=== PATIENT | male | born 1995 | race Caucasian/White ===

== ENCOUNTER → 2022-06-27 12:05 | Outpatient (BNVA) | payer OTHER, SELFPAY | PROVIDERS: Visit Provider Family Medicine | DX: R06.83 Snoring (principal) | CPT/HCPCS: 80053; 85025 ==

== ENCOUNTER 2022-10-01 20:00 | Outpatient (CLI) | payer OTHER, SELFPAY | END 2022-10-01 20:01 | disposition home or self-care (01) | LOC: SLEEP 10-02 05:08 | PROVIDERS: Visit Provider Family Medicine | DX: G47.33 Obstructive sleep apnea (adult) (pediatric) (principal); R06.83 Snoring | CPT/HCPCS: 95810 ==

== ENCOUNTER 2024-02-23 01:30 | Emergency (ER) | payer SELFPAY ==
[2024-02-23 01:42] VITALS: BP 166/100; PULSE 91; RESP 18; TEMP 36.6; O2SAT 99; BMI 28.7
[2024-02-23 01:45] VITALS: BP 161/108; PULSE 80; O2SAT 98
[2024-02-23 02:02] VITALS: BP 147/96; PULSE 78; O2SAT 97
[2024-02-23 02:33] VITALS: RESP 18; O2SAT 97
[2024-02-23] MEDS: levoFLOXacin 750 mg Tablet PO (02:33)
[2024-02-23] MEDS: oxyCODONE-APAP 5-325 mg Tablet 2 TAB PO (02:33)
[2024-02-23] MEDS: ketorolac 10 mg Tablet PO (02:34)
[2024-02-23] MEDS: dexamethasone 10 mg/mL INJ 8 MG PO (02:35)
[2024-02-23 02:48] LABS: Covid PCR NEGATIVE (Negative); Influenza A NEGATIVE (Negative); Influenza B NEGATIVE (Negative); Respiratory Syncytial Virus Ce NEGATIVE (Negative)
--- NOTE | 2024-02-23 02:48 | W.ED.URI ---
HPI - URI/Sore Throat General: Chief Complaint: Upper Respiratory Infection Stated Complaint: headache eyes swollen blood in throat Time Seen by Provider: 02/23/24 02:00 History of Present Illness: 28-year-old male he says he had surgery on his sinuses around 6 weeks ago in [facility]. He presents with forehead pain, eyebrow pain, congestion, and sore throat. He says that he ran a fever yesterday. He states that he was on antibiotics for 2 weeks following his surgery, but has not been on them since Related Data Previous Rx's Medication Instructions Recorded CPAP 14 setting #1 ea 10/04/22 CPAP mask, tubing, supplies #1 ea 10/04/22 ibuprofen 800 mg tablet 800 mg PO Q8H PRN pain #60 tabs 05/25/23 levocetirizine 5 mg tablet (Xyzal) 5 mg PO DAILY PRN allergy symptoms 06/26/23 #60 tabs levofloxacin 750 mg tablet 750 mg PO DAILY 7 days #7 tabs 02/23/24 Allergies Allergy/AdvReac Type Severity Reaction Status Date / Time No Known Allergies Allergy Verified 06/26/23 11:36 [facility] ED PFSH: Medical History Obstructive sleep apnea History of arm fracture Family History Grandmother Cancer Maternal--unsure Father ALS (amyotrophic lateral sclerosis) Denies family history of Diabetes CAD (coronary artery disease) Clotting disorder Dementia Hyperlipidemia Psychiatric illness Chronic kidney disease (CKD) Anesthesia complication Bleeding disorder Lung disease Hypertension Stroke Social History Smoking and tobacco/nicotine status: never used tobacco/nicotine Alcohol intake: current Alcohol intake frequency: holidays/special occasions only Substance/Drug Use: never Adopted: No Caregiver/support person: No Lives independently: Yes Marital status: Legally Number of children: 1 service: No Current occupational status: employed Current occupation: Owns [employer] Current gender identity: Male Special jay needs: No Agree to transfusion: Yes Physical Exam Const: COMMON NORMALS: no acute distress GENERAL APPEARANCE: cooperative; not ill appearing and not frail appearing HENMT: COMMON NORMALS: normocephalic, atraumatic and Normal external nose present HEAD & SCALP: normocephalic and atraumatic FACE & SINUS: Facial tenderness on exam of face and sinuses on the right periorbital and forehead NOSE: Normal external nose present Eye: COMMON NORMALS: Equal, round and reactive pupils present and EOMs intact bilaterally PUPIL: Yes Equal, round and reactive pupils present Neck/C-Spine: GENERAL: Yes trachea midline Chest: CHEST: Yes Symmetrical chest wall rise Resp: COMMON NORMALS: normal respiratory effort, No retractions, No use of accessory muscles and clear to auscultation bilaterally AUSCULTATION: clear to auscultation bilaterally Cardio: COMMON NORMALS: regular rate and regular rhythm RATE: regular rate RHYTHM: regular rhythm GI: COMMON NORMALS: Normal to inspection, nondistended, normoactive bowel sounds present Extremity: COMMON NORMALS: no pedal edema Neuro: ALIYAH COMA SCALE: document GCS findings Aliyah coma scale eye opening: Spontaneous Aliyah coma scale verbal response: Orientated Aliyah coma scale motor response: Obey commands Aliyah coma scale total score: 15 SENSORY EXAM: Yes extremities (intact) Psych: COMMON NORMALS: speech normal SPEECH: Yes normal speech Skin: COMMON NORMALS: no rashes or lesions noted GENERAL SKIN EXAM: no rashes or lesions noted Course Vital Signs: Vital signs: Vital Signs Temperature 97.9 F 02/23/24 01:42 CS T Pulse Rate 78 02/23/24 02:02 Respiratory Rate 18 02/23/24 02:33 Blood Pressure 147/96 02/23/24 02:02 Pulse Oximetry 97 02/23/24 02:33 MDM - URI/Sore Throat Medical Decision Making Frontal sinus tenderness on the right. Minimal eyelid swelling. He is afebrile. He is hypertensive. Otherwise vital stable. Viral swab is negative. He will be treated for sinusitis given his recent surgery. Lab Data Laboratory Results Coronavirus (PCR) Negative (Negative) 02/23/24 01:43 [employer] Influenza A (PCR) Negative (Negative) 02/23/24 01:43 [employer] DIRECTOR Influenza Type B (PCR) Negative (Negative) 02/23/24 01:43 [employer] DIRECTOR RSV (PCR) Negative (Negative) 02/23/24 01:43 [employer] DIRECTOR All radiology interpretation(s) finalized by discharge Discharge Plan Discharge Patient Disposition: Home Clinical Impression: Acute sinusitis Condition: Stable Prescriptions: New levofloxacin 750 mg tablet 750 mg PO DAILY 7 Days Qty: 7 0RF No Action levocetirizine [Xyzal] 5 mg tablet 5 mg PO DAILY PRN (Reason: allergy symptoms) Qty: 60 1RF ibuprofen 800 mg tablet 800 mg PO Q8H PRN (Reason: pain) Qty: 60 0RF (DME) CPAP 14 setting See Rx Instructions .ROUTE .MEDSUPPLY Qty: 1 0RF Rx Instructions: As directed (DME) CPAP mask, tubing, supplies See Rx Instructions .ROUTE .MEDSUPPLY Qty: 1 1RF Rx Instructions: As directed Discharge Orders: Discharge ED (Routine); Ordered 02/23/24 Ordered By: Geronimo Krishnan Referrals: Ramirez Garcia MD [Primary Care Provider] - 1-3 days Patient Instructions: Sinusitis (ED), Opioid Safety, Pain Management Activity Restrictions/Additional Instructions: Return for fever despite 2-3 doses of antibiotics, worsening headache despite 2-3 doses of antibiotic, vomiting liquids or medications, other concerning symptoms. See your doctor this coming week. Coding Level of Care Code ED Parent Aide for Higinio La
[2024-02-23 03:25] VITALS: BP 133/94; PULSE 89; O2SAT 97
== END 2024-02-23 03:26 | disposition home or self-care (01) ==
PROVIDERS: Emergency Provider Emergency Medicine; PCP Family Medicine
DX: J01.90 Acute sinusitis, unspecified (principal)
CPT/HCPCS: 0241U; 99283; J1100